=== PATIENT | male | born 1950 | race Caucasian/White ===

== ENCOUNTER 2016-10-31 05:43 | Emergency (ER) | payer OTHER ==
[~2016-10-31] VITALS: Ht 177.8 cm; Wt 91.0 kg
[2016-10-31 05:46] VITALS: TEMP 36.7; Ht 177.8 cm; Wt 91.0 kg
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
[2016-10-31] MEDS ORDERED: LISI-461 PO (06:07)
[2016-10-31] MEDS ORDERED: ATOR-24 PO (06:07)
[2016-10-31 07:34] VITALS: BP 127/94; PULSE 73; O2SAT 96
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
== END 2016-10-31 07:34 | disposition home or self-care (01) ==
LOC: C.EDB 05:45
DX: S13.4XXA Sprain of ligaments of cervical spine, initial encounter (principal); S60.221A Contusion of right hand, initial encounter; S60.222A Contusion of left hand, initial encounter; V87.8XXA Person injured in other specified noncollision transport accidents involving motor vehicle (traffic), initial encounter; Y92.411 Interstate highway as the place of occurrence of the external cause; I10 Essential (primary) hypertension; E78.5 Hyperlipidemia, unspecified; Z79.899 Other long term (current) drug therapy

== ENCOUNTER → 2017-02-23 | Outpatient (CLI) | payer OTHER ==
[~2017-02-23] MED LIST: ATOR-24 PO; LISI-461 PO
--- NOTE | 2017-02-23 11:40 | DIAGNOSTIC IMAGING REPORT ---
SINUSES MIN 3 VIEWS ROUTINE CLINICAL HISTORY: R05 [id number] Sinus [id number] cough COMPARISON STUDY: None FINDINGS: All major sinuses are clear. No evidence for bony destructive process. IMPRESSION: Normal study The above report was generated using voice recognition software. It may contain grammatical, syntax or spelling errors. Electronically signed by: Dean Hernandes M.D. 02/23/2017 11:38 AM Dictated Date/Time: 02/23/2017 11:38 AM
[2017-02-23 12:21] LABS: BASO % 1.2 %; BASO ABS # 0.07 K/uL (0-0.2); COMPLETE YES; EOS % 5.2 %; HEMATOCRIT 41.9 % (42-52); IG% 0.3 %; LYMPH % 31.6 %; LYMPH ABS # 1.82 K/uL (1.2-3.4); MEAN CELL VOLUME 93.5 fL (80-100); MEAN CORPUSCULAR HGB CONC 35.3 g/dl (32-36); MEAN PLATELET VOLUME 9.2 fL (7.4-10.4); MONO % 13.2 %; NEUT % 48.5 %; PLATELET COUNT 212 K/uL (130-400); RED BLOOD COUNT 4.48 M/uL (4.7-6.1); WHITE BLOOD COUNT 5.76 K/uL (4.8-10.8)
[2017-02-25 20:52] LABS: BORDETELLA PERTUSSIS PT IGA 3 IU/mL
== END | disposition home or self-care (01) ==
LOC: C.RAD1850 11:06
PROVIDERS: ATTEND Internal Medicine Pulmonary Disease
DX: R09.81 Nasal congestion (principal); R05 Cough; N18.9 Chronic kidney disease, unspecified; E78.5 Hyperlipidemia, unspecified

== ENCOUNTER → 2017-04-09 | Outpatient (CLI) | payer OTHER ==
[~2017-04-09] MED LIST changes: +OPTIRAY 320 IV PRN
--- NOTE | 2017-04-09 14:15 | DIAGNOSTIC IMAGING REPORT ---
(CHEST) THORAX WITH CT DOSE: 457.83 mGycm HISTORY: Cough R05 Cough TECHNIQUE: Multiaxial CT images of the chest were performed following the intravenous administration of contrast. A dose lowering technique was utilized adhering to the principles of ALARA. COMPARISON: None. FINDINGS: The lungs are clear. The mediastinal vascular structures are within normal limits. No mediastinal or hilar lymphadenopathy. No pleural effusion or pneumothorax. Limited views of the upper abdomen demonstrate a normal liver and spleen. 6 mm nodule resembling calcified granuloma transaxial image 31 medially posterior to the right major fissure. 4 mm nodule immediately adjacent to the right major fissure transaxial image 32 suggesting either intrafissural lymph node versus calcified granuloma. No focal infiltrative change. Minimal atelectatic change left lung base. IMPRESSION: Minimal atelectatic change left base. The chest is otherwise negative. Several small calcified granulomas The above report was generated using voice recognition software. It may contain grammatical, syntax or spelling errors. Electronically signed by: Dean Hernandes M.D. 04/09/2017 2:14 PM Dictated Date/Time: 04/09/2017 2:10 PM
== END | disposition home or self-care (01) ==
LOC: C.CTS 13:47
PROVIDERS: ATTEND Internal Medicine Pulmonary Disease
DX: R05 Cough (principal)

== ENCOUNTER → 2017-06-15 | Outpatient (CLI) | payer OTHER ==
[~2017-06-15] MED LIST changes: -OPTIRAY 320 IV PRN
--- NOTE | 2017-06-15 11:01 | DIAGNOSTIC IMAGING REPORT ---
CHEST 2 VIEWS ROUTINE HISTORY: R05 [id number] Abnormal chest x-ray COMPARISON: Chest CT 04/09/2017. FINDINGS: A few linear densities within the left mid to lower lung zone consistent with scarring or atelectasis. This is similar to the prior study. No new focal lung consolidations. No evidence for pulmonary edema. The heart is normal in size. No pleural effusions. No pneumothorax. Symmetric faint nodular density within the lung bases are consistent with nipple shadows. IMPRESSION: No significant change compared to the prior study. No acute process. Electronically signed by: Germán Valverde M.D. 06/15/2017 11:00 AM Dictated Date/Time: 06/15/2017 10:59 AM
== END | disposition home or self-care (01) ==
LOC: C.RAD1850 10:31
PROVIDERS: ATTEND Physician Assistant
DX: R93.8 Abnormal findings on diagnostic imaging of other specified body structures (principal); R05 Cough

== ENCOUNTER 2017-07-02 07:05 | Day surgery (SDC) | payer OTHER ==
[2017-07-02] VITALS (15 sets, daily range): BP systolic 101–136; BP diastolic 67–92; PULSE 57–67; TEMP 36.5–36.7; O2SAT 94–99; Ht 172.7 cm; Wt 88.5 kg
[~2017-07-02] VITALS: Ht 172.7 cm; Wt 88.5 kg
[2017-07-02] MEDS ORDERED: LIDOCAINE HCL 2% LOCAL 50ML VIAL INFIL ONE (07:06)
[2017-07-02] MEDS ORDERED: LEVALBUTEROL 1.25MG/3ML NEB INH ONE (07:06)
[2017-07-02] MEDS ORDERED: FENTANYL CITRATE INJ 50 MCG/1 ML 2 ML VIAL IV ONE ×2 (07:06→10:15)
[2017-07-02] MEDS ORDERED: LIDOCAINE 4% W/AFRIN NASAL SOLN 4ML ONE (07:06)
[2017-07-02] MEDS ORDERED: MIDAZOLAM HCL 5 MG/ML 1 ML VIAL IV ONE ×2 (07:06→10:15)
[2017-07-02] MEDS ORDERED: PRLSR20 PO (07:55)
[2017-07-02] MEDS ORDERED: GLUC10007 PO (08:15)
[2017-07-02] MEDS ORDERED: Potassium PO (08:15)
[2017-07-02] MEDS ORDERED: ASPI325T45 PO (08:15)
--- NOTE | 2017-07-02 09:02 | History & Physical Bridge Note ---
H&P Re-Evaluation Bridge Note: I have examined the patient, reviewed the History & Physical and in the interval since the performance of the History & Physical I have noted the following changes of clinical significance: No changes noted
--- NOTE | 2017-07-02 09:03 | Procedure Note ---
Pre-Mod Sedation Assessment General Date of Moderate Sedation: Jul 02, 2017. Vital Signs: Vital Signs Past 12 Hours Date Time Temp Pulse Resp B/P (MAP) Pulse Ox O2 Delivery O2 Flow Rate FiO2 07/02/17 08:56 36.7 57 20 126/67 97 Room Air 07/02/17 07:56 36.7 57 20 126/67 (86) 97 Room Air Pre-Sedation Airway Assessment Oral Cavity: WNL Short Thick Neck: No Hx of Sleep Apnea: No Smoking Status: Former Smoker Mallampati Classification: Class II ASA Classification: Class II Procedure Planning Contraindications-for Mod Sed: None Yes Notes The planned sedation has been discussed with the patient and consent obtained. I have identified the patient, determined the appropriateness of sedation and have assessed the patient immediately prior to the procedure. All medicine(s) and interventions are by my order.
[2017-07-02] MEDS ORDERED: NURSING VERBAL MED ORDER ONE ×2 (09:15→10:00)
[2017-07-02] MEDS ORDERED: DEXTROSE 5% 1000ML 1,000 ML IV SCH (09:30)
--- NOTE | 2017-07-02 11:03 | Discharge Instructions ---
Discharge Instructions Date of Service Jul 02, 2017. Admission Reason for Admission: Cough, Abd Cxr, Sob Discharge Discharge Diagnosis / Problem: Chronic Mucopurulent Bronchitis Discharge Goals Goal(s): Diagnostic testing, Therapeutic intervention Activity Recommendations Activity Limitations: resume your previous activity Lifting Limitations: none Exercise/Sports Limitations: none May Resume Sexual Activity: when tolerated Shower/Bathe: no limitations Driving or Machine Use: resume 1 day after discharge . Instructions / Follow-Up Instructions / Follow-Up ACTIVITY RECOMMENDATIONS: * Rest today, resume normal activity tomorrow. * Do not drive today. SPECIAL CARE INSTRUCTIONS: * Call your physician if you experience any chest or shoulder pain, fever, coughing, spitting up blood (more than 2 teaspoons) or excessive shortness of breath. * Remove dressing from IV site (where needle was placed into the vein) after 2 hours. Apply a warm, moist compress to site if irritation occurs. Call physician if site becomes red or painful to touch. FOLLOW UP VISIT: * Keep any scheduled doctor appointments. Current Hospital Diet Patient's current hospital diet: Discharge Diet Recommended Diet: Regular Diet Fluid Restriction: None Pending Studies Studies pending at discharge: no Medical Emergencies . Who to Call and When: Medical Emergencies: If at any time you feel your situation is an emergency, please call 911 immediately. . Non-Emergent Contact Non-Emergency issues call your: [employer] Call Non-Emergent contact if: temperature is above 101 . . "Provider Documentation" section prepared by Jesse Romero. . VTE Core Measure Inpt VTE Proph given/why not?: Treatment not indicated
--- NOTE | 2017-07-02 11:24 | OPERATIVE REPORT ---
DATE OF OPERATION: 07/02/2017 PROCEDURE: Fiberoptic bronchoscopy with bronchoalveolar lavage. INDICATIONS: Chronic cough/throat clearing refractory to aggressive outpatient therapy. ANESTHESIA PREOPERATIVELY: None. ANESTHESIA DURING PROCEDURE: 5 mg IV Versed, 50 mcg IV fentanyl, 20 mL 2% Xylocaine spray above and below the cords, 4% viscous Xylocaine intranasally. DESCRIPTION OF PROCEDURE: Fiberoptic bronchoscope was inserted into the left naris with minimal difficulty and passed to the level of the true vocal cords. The nasopharynx appeared to be edematous and narrowed and the false cords appeared to be edematous as well and mildly erythematous. The cords appear to approximate normally with phonation without evidence of lesions or paralysis. The area was anesthetized with 2% Xylocaine spray and the scope was then introduced in the trachea and right and left tracheobronchial tree. The chucky was sharp. The right main stem bronchus was found to be free of endobronchial lesions. The right upper lobe, the apical posterior and anterior segments were identified and mucous pitting was prominently displayed at the takeoff of the right upper lobe orifice. The bronchus intermedius, right middle lobe and the medial and lateral segments and all basilar segments of the right lower lobe were found to be free of endobronchial lesions with a moderate amount of relatively clear mucoviscous secretion lavaged from all lobar segments until clear. Left tracheobronchial tree was explored and no obvious endobronchial lesion was seen. Left upper lobe, the apical-posterior and anterior segments, lingular subdivision with the superior and inferior segments and all basilar segments of left lower lobe were free of endobronchial lesions down to the subsegmental bronchi. The right and left lower lobes were copiously lavaged with normosol and the aspirate sent for appropriate studies. No brushings or biopsies were obtained. The scope was then withdrawn into the nasopharynx and then withdrawn completely. The patient was given a nebulizer treatment with Xopenex 1.25 mg and transferred to the medical treatment unit hemodynamically stable with no signs of expiratory compromise. We will await microbiological and cytologic examination of the bronchial washings. RECOMMENDATIONS: 1. Increase omeprazole to 20 mg p.o. b.i.d. and instructed patient on antireflux precautions and measures. 2. Schedule nocturnal polysomnograph as I have concerns patient may have obstructive sleep apnea, both by the appearance of the nasopharynx and historically. 3. ENT evaluation. 4. Discontinue lisinopril for possible CHRISTINA inhibitor induced cough/throat irritation. PLAN: Followup in clinic followup upon completion of these studies. I attest to the content of the Intraoperative Record and any orders documented therein. Any exception s are noted below.
[2017-07-06 14:36] LABS: HERPES SIMPLEX CULT SOURCE OTHER-R&L TRACHBRONC; HERPES SIMPLEX VIRUS CULT ISOLATED (NOT ISOLATED)
== END 2017-07-02 12:08 | disposition home or self-care (01) ==
LOC: C.ACU 07:05
PROVIDERS: ATTEND Internal Medicine Pulmonary Disease
DX: R05 Cough (principal); I12.9 Hypertensive chronic kidney disease with stage 1 through stage 4 chronic kidney disease, or unspecified chronic kidney disease; N18.9 Chronic kidney disease, unspecified; E78.5 Hyperlipidemia, unspecified; K21.9 Gastro-esophageal reflux disease without esophagitis; M51.36 Other intervertebral disc degeneration, lumbar region; Z79.899 Other long term (current) drug therapy

== ENCOUNTER → 2017-07-20 | Outpatient (CLI) | payer OTHER ==
[~2017-07-20] MED LIST changes: +ASPECOTC PO; +GLUC10007 PO; +PRLSR20 PO; +Potassium PO
--- NOTE | 2017-07-21 05:50 | PAP/PSG TECHNICIAN REPORT ---
[facility] Web Project Manager Polysomnogram Report Study name: None Report date: 07/21/2017 Study date: 07/20/2017 Referring Physician: DR. VAUGHN Name: RENZO MATTHEWS Interpreting Physician: Abran Baker M.D. Date of : 1950 Web Project Manager: Isra Rod RPSGT. Sex: Male Age: 67 StudyType: PSG Weight: 201 lbs Height: 67 years, Height 5' 10" BMI: 28.84 Medications: ATORVASTATIN CACLIUM 40 MG, LISINOPRIL 10 MG, OMEPRAZOLE 40 MG, MONTELUKAST SODIUM 10 MG, GLUCOSAMINE Patient History PATIENT HAS HISTORY OF FATIGUE, LOW ENERGY AND DAYTIME SLEEPINESS. ALSO HAS HISTORY OF CHRONIC COUGH. HE IS HERE TODAY FOR AN EVALUATION FOR YELENA. ESS = 3 RM 8 Parameters Monitored NPSG: E1-M2, E2-M1, Fp1-M2, Fp2-M1, F3-M2, F4-M2, F4-M1, C3-M2, C4-M2, C4-M1, O1-M2, O2-M2, O2-M1, T3-M2, T4-M1, P3-M2, P4-M1, CHIN1, CHIN2, HR, EKG, Legs, PFLOW, SNOR, FLOW, CFLOW, Tidal Volume, THOR, ABDO, SpO2, PLTH, CPRESS, ETCO2 Wave, ETCO2, pH Sleep Architecture Sleep Stages Time at Lights Off 8:51:46 PM STAGES Time (min.) TST (%) Time at Lights On 5:28:16 AM Wake 235.0 -- Total Recording Time (TRT) 517.00 min. N1 17.5 6 Total Sleep Period (TSP) 425.0 min. N2 152.5 54 Total Sleep Time (TST) 281.5min. N3 50.0 18 Awake Time 235.5 min. REM 61.5 22 Wake after Sleep Onset 143.5 min. Sleep Efficiency (SE) 55 % Sleep Onset Latency (ALMA) 91.5 min. Number of Stage 1 Shifts None Awakenings 22 Stage Changes 79 Number of REM periods 5 REM 61.5 22 REM Latency 84.0 min. NREM 220.0 78 Body Position Analysis Supine Right Left Side Prone Vertical Total Sleep Time (min.) 301.3 0.0 161.5 161.55 0.0 0.0 Total Sleep Time (%) 43% 0% 57% 57 0% N/A% Total Sleep Time REM (min.) 7.5 0.0 54.0 None 0.0 0.0 Total Sleep Time NREM (min.) 112.5 0.0 107.5 None 0.0 0.0 Intermittent Wake (min.) 181.4 0.0 53.6 None 0.0 0.0 Total Sleep Period (%) 49% None None None None None Arousals Myoclonus (PLM) * Events Count Index Events Count Index Spontaneous 22 5 Events Awake (PLMW) 120 30.6 Respiratory 11 2.8 Events Asleep w/ Arousal (PLMA) 2 0.4 PLM 2 0 Events Asleep w/o Arousal (PLMS) 14 3.0 Snoring 3 1 Total Asleep 16 3.4 Total 38 8 Total 136 16 Respiratory Analysis * CA OA MA CH H RERA Total Count 0 2 0 0 16 11 18 Index 0.0 0.4 0.0 0 3.4 2 6.2 Mean Duration 0.0 37.6 0.0 0.00 23.8 18.7 22.8 Longest Duration 0.0 43.8 0.0 0.00 0.0 21.4 43.8 Respiratory Event Summary Total Supine ~Supine Right Left Prone REM NREM Apneas Count 2 2 0 N/A 0 N/A 2 0 Index 0.4 1 0 N/A 0.0 N/A 2 0 Hypopneas (4% Desat) Count 16 13 3 N/A 3 N/A 7 9 Index 3.4 6.5 1 N/A 1.1 N/A 6.8 2.5 Apneas & All Hypopneas Count 18 15 3 N/A 3 N/A 9 9 Index 3.8 8 1 N/A 1 N/A 8.8 2.5 Respiratory Events (Digital Marketing Coordinator+All Hyp+RERA) Count 18 25 4 N/A 4 N/A 9 9 Index 6.2 13 1 N/A 1.5 N/A 8.8 5.5 Respiratory Related Arousal Count 11 25 0 N/A 0 N/A 1 12 Index 2.8 7 0 N/A 0 N/A 1 3 Snoring Analysis Supine Right Left Prone REM NREM Total Snore duration 13.5 min Snores count 408 N/A 209 N/A 96 521 617 Snore mean duration 1.3 Sec Snores index 204 N/A 78 N/A 93.7 142.1 131.5 TST with snoring (%) 4.8% Desaturation Event Summary: Minimum %SpO2 Event Count Mean/Min/Max Duration(sec.) Desaturation Index % Time In Bed > 90 20 35.7 / 18.5 / 64.2 2.4 98.9 86 - 90 1 23.5 / 23.5 / 23.5 11.4 1.0 81 - 85 0 N/A 0.0 0.1 76 - 80 0 N/A 0.0 0.0 71 - 75 0 N/A 0.0 0.0 66 - 70 0 N/A 0.0 0.0 61 - 65 0 N/A 0.0 0.0 56 - 60 0 N/A 0.0 0.0 51 - 55 0 N/A 0.0 0.0 < 50 0 N/A 0.0 0.0 Total REM NREM Awake <50% 0.0 min. 0.0 min. 0.0 min. 0.0 min. 51 - 60% 0.0 min. 0.0 min. 0.0 min. 0.0 min. 61 - 70% 0.0 min. 0.0 min. 0.0 min. 0.0 min. 71 - 80% 0.2 min. 0.0 min. 0.0 min. 0.2 min. 81 - 90% 5.6 min. 2.3 min. 2.3 min. 1.0 min. 91 - 100% 503.5 min. 59.2 min. 217.8 min. 226.6 min. Average 93 93 93 94 Minimum SpO2 80 87 83 80 Desaturation Event Index 2.3 9.8 2.2 0.5 # Desat. Events below 89% 5 4 1 0 Time(%) with Saturation below 89% 0.2 0.1 0.1 0.1 Time(min.) with Saturation below 89% 1.2 0.4 0.4 0.4 Time (mins) REM (mins) NREM (mins) % of TST SpO2 Below 90% 11 8 N3 0.5 SpO2 Below 88% 3 0 0 0 Heart Rate Analysis Min (bpm) Max (bpm) Average (bpm) Awake 51 127 56 NREM 50 95 54 REM 51 64 55 Overall 50 95 54 Supplemental O2 Values Minimum O2 level: None Value Start Time End Time Web Project Manager Comments Mr. Matthews slept in the left and supine positions. No cardiac arrhythmia noted. Leg movements noted. No bruxism noted. Snoring was noted and scored as a 4 on a scale of 1 through 5. (0=no snoring, 5=snoring loud enough to be heard through a closed door or down the story way) Mr. Matthews awoke to use the restroom 1 time during the night. Mr. Matthews stated I slept as well as I do when I am in my own bed. The final report will be interpreted and signed by a sleep physician. The completed physician report will then be placed in the patient medical record. Therapy (cm H2O) 0 TIB (min.) 516.5 TST (min.) 281.5 Sleep Onset (min.) 91.5 REM Onset From Sleep (min.) 84.0 Sleep Efficiency % 55 Wakefulness (%) 45 Wakefulness (min.) 235.5 NREM 1 (%) 6 NREM 1 (min.) 17.5 NREM 2 (%) 54 NREM 2 (min.) 152.5 NREM 3 (%) 18 NREM 3 (min.) 50.0 REM (%) 22 REM (min.) 61.5 # Arousals 38 Arousal Index 8 # Snore 617 Snore Index 131.5 AHI 3.8 AHI Supine 8 AHI Non-Supine 1 NREM AHI 2.5 REM AHI 8.8 RDI 6.2 # Obstructive Apnea 2 # Central Apnea 0 # Mixed Apnea 0 # Hypopneas 16 RERAs 11 Total Respiratory Events 30 Time Below SpO2 89% (min.) 0.8 Mean NREM SpO2 (%) 93 Mean REM SpO2 (%) 93 Mean Sleep SpO2 (%) 93 Min NREM SpO2 (%) 83 Min REM SpO2 (%) 87 Position Supine (min.) 301.3 Position Non-supine (min.) 161.5 LM Index Sleep 3.4 LM Index NREM 3.0 LM Index REM 4.9 Mean Heart Rate (bpm) 54 Min Heart Rate (bpm) 50
--- NOTE | 2017-07-22 12:09 | POLYSOMNOGRAPH REPORT ---
CLINICAL DATA: A 67-year-old male with a BMI of 28.[address] Romero with fatigue, low energy and daytime sleepiness. He has a history of chronic cough. Because of the appearance of his airway during bronchoscopy and his symptoms, he was referred for a sleep study. His [place] sleepiness score is 3/24. SLEEP ARCHITECTURE: Total sleep period was 425 minutes. Total sleep time was only 281.5 minutes divided between 220 minutes of non-REM sleep and 61.5 minutes of REM sleep. Sleep onset latency was delayed at 91.5 minutes. REM latency was 84 minutes. Sleep efficiency was reduced to 55%. Wake after sleep onset was elevated at 143.5 minutes. Sleep consisted of stage N1 6%, stage N2 54%, stage N3 18%, and REM 22%. AROUSAL DATA: Thirty eight arousals were recorded for an index of 8 per hour. PERIODIC LIMB MOVEMENTS DATA: Sixteen limb movements during sleep were noted for an index of 3.4 per hour with arousal index of 0.4 per hour. RESPIRATORY DATA: The patient did not demonstrate clinically significant sleep apnea/hypopnea, but may have evidence of very mild upper airway resistance syndrome. The AHI was 3.8. The RDI was 6.2. There were 2 obstructive apneic episodes. The longest duration of apnea was 43.8 seconds. There were 16 hypopneic episodes with a mean duration of 23.8 seconds. There were 11 respiratory effort related arousals with a maximum duration of 21.4 seconds. OXIMETRY DATA: No significant hypoxemia was seen. Oxygen nelson was 83% during non-REM sleep. The mean saturation was 92%. Time below 88% was 3 minutes. ECHOCARDIOGRAM: Heart rates ranged from 50-95 beats per minute. No arrhythmias were noted. UX LEAD'S COMMENTS: The patient slept in the left and supine positions. Snoring was severe, rated 4 on a scale of 1-5. IMPRESSION: No definite evidence of clinically significant sleep apnea/hypopnea with an apnea/hypopnea index of 3.8. However, the patient did have an respiratory disturbance index of 6.2 when respiratory effort related arousals were added to the apnea/hypopnea index suggesting very mild upper airway resistance syndrome. RECOMMENDATIONS: The patient may benefit from positional therapy since most of his events occurred while supine, use of nasal steroids for nasal obstruction, or ENT evaluation. If he continues to have symptoms, an oral appliance or CPAP could be considered, although his findings are quite mild, based on his current sleep study. Clinical correlation is needed. DAMIEN
== END | disposition home or self-care (01) ==
LOC: C.NEUR 20:00
PROVIDERS: ATTEND Internal Medicine Pulmonary Disease
DX: G47.30 Sleep apnea, unspecified (principal)

== ENCOUNTER → 2017-08-30 | Outpatient (CLI) | payer OTHER ==
[~2017-08-30] MED LIST changes: -ASPECOTC PO; +ASPI325T45 PO; +OPTIRAY 320 IV PRN
--- NOTE | 2017-08-30 14:20 | DIAGNOSTIC IMAGING REPORT ---
FUSION CT SINUSES W/O HISTORY: 67 years-old Male J33.9 Nasal polypsNASAL POLYPS. Cough a sinonasal polyps and allergic rhinitis COMPARISON: CT soft tissue neck of same day TECHNIQUE: Multiple axial CT images of the paranasal sinuses were obtained without contrast. Axial Medtronic images also obtained. A dose lowering technique was used consistent with the principals of DEANA. FINDINGS: The mastoid air cells and middle ear cavities are clear bilaterally. There is mild left and minimal right mucoperiosteal thickening of the maxillary sinuses. Bilateral frontal sinuses are clear. There is mild mucoperiosteal thickening of the bilateral ethmoid air cells. Mild right and [id number] left sphenoid sinus mucoperiosteal thickening. Bubbly secretions are present within the right sphenoid sinus. Mucosal thickening narrows the bilateral sphenoethmoidal recesses. The bilateral frontoethmoidal recesses are patent. The bilateral maxillary ostiomeatal units are also patent. No hilar cells identified. Moderate right hang bullosa. Mild rightward bowing and spurring of the nasal septum. Nasopharynx is patent. Nasal turbinates are also patent. No facial bone fracture or subluxation identified. Degenerative changes are seen within the imaged cervical spine. Soft tissues are unremarkable. Image intracranial structures demonstrate no acute abnormality. Ill-defined areas of low-attenuation within the periventricular white matter suggest mild chronic microvascular ischemic changes, notably within the left frontal lobe. Mild cerebral atrophy. Vascular calcifications are seen at the level of the skull base. IMPRESSION: 1. Paranasal sinus disease as above with mucosal thickening and narrowing of the bilateral sphenoethmoidal recesses. No ostiomeatal occlusive disease. 2. Moderate right-sided hang bullosa. 3. Mild rightward bowing and spurring of the nasal septum. The above report was generated using voice recognition software. It may contain grammatical, syntax or spelling errors. Electronically signed by: Valeriy Oneal M.D. 08/30/2017 2:18 PM Dictated Date/Time: 08/30/2017 2:12 PM
--- NOTE | 2017-08-30 14:30 | DIAGNOSTIC IMAGING REPORT ---
SOFT TISSUE NECK WITH HISTORY: 67 years-old Male R05 [id number] GERD without [id number] Abnormal chest x-ra acute cough with possible hyoid bone injury COMPARISON: CT paranasal sinus study of same day, CT cervical spine 10/31/2016 TECHNIQUE: Multiple axial CT images of the soft tissues of the neck were obtained following the intravenous administration of 93 mL Optiray 320. A dose lowering technique was used consistent with the principals of ALARA. FINDINGS: No pneumothorax. 4 mm partially calcified nodule abuts the major fissure within the apical posterior segment left upper lobe. Carotid vasculature is patent. Mild mixed plaquing the carotid bulbs with less than 50% stenosis. The left vertebral artery is dominant. The right vertebral artery appears to terminate into the PICA. The nasopharynx, oral pharynx and hypopharynx appear patent and within normal limits. Mild mucosal secretions noted within the left vallecula. Piriform sinuses appear patent. Cricoid cartilage and glottis appear unremarkable. The hyoid bone appears intact without acute fracture. Preglottic fat appears maintained. Thyroid is homogeneous. Parotid and submandibular glands appear to be within normal limits. No pathologic adenopathy identified. Mild paranasal sinus disease, further discussed on CT sinus study of same day. Multilevel intervertebral disc space narrowing, facet arthrosis and disc osteophyte complex formation throughout the cervical spine with mild reversal of the normal cervical lordosis. 3 mm anterolisthesis C2 on C3 is likely secondary to long-standing facet disease. IMPRESSION: 1. No acute abnormality identified involving the soft tissues of the neck. 2. Intact hyoid bone without evidence of fracture. 3. Mild paranasal sinus disease. 4. Multilevel degenerative changes of the cervical spine. The above report was generated using voice recognition software. It may contain grammatical, syntax or spelling errors. Electronically signed by: Valeriy Oneal M.D. 08/30/2017 2:29 PM Dictated Date/Time: 08/30/2017 2:20 PM
== END | disposition home or self-care (01) ==
LOC: C.CTS 12:56
PROVIDERS: ATTEND Physician Assistant
DX: K21.9 Gastro-esophageal reflux disease without esophagitis (principal); R05 Cough; R93.8 Abnormal findings on diagnostic imaging of other specified body structures; J33.9 Nasal polyp, unspecified; J32.8 Other chronic sinusitis; J34.89 Other specified disorders of nose and nasal sinuses; M47.812 Spondylosis without myelopathy or radiculopathy, cervical region

== ENCOUNTER → 2017-09-09 | Outpatient (CLI) | payer OTHER ==
[~2017-09-09] MED LIST changes: -OPTIRAY 320 IV PRN
--- NOTE | 2017-09-09 07:47 | DIAGNOSTIC IMAGING REPORT ---
(BARIUM SWALLOW) ESOPHAGUS CLINICAL HISTORY: 67 years-old Male presenting with R05 [id number]. TECHNIQUE: A standard air contrast barium esophagram is performed. Multiple spot images of the esophagus are acquired both upright and prone. COMPARISON: CTA neck from 08/30/[address] chest from 04/09/2017. FINDINGS: The patient was able to ingest barium and the barium pill without difficulty. Normal mucosal pattern. No evidence of intrinsic or extrinsic mass lesion. No focal narrowing of the esophagus. No aspiration observed. Tertiary contractions evident in the mid to distal esophagus. The gastroesophageal junction distended normally. No gastroesophageal reflux. Fluoroscopy dosage (mGy): Not available. Fluoroscopy time: 1.8 minutes. Number of fluoroscopic spot images: 23. IMPRESSION: Tertiary contractions suggests dysmotility, likely presbyesophagus. No evidence of esophageal stenosis. Electronically signed by: Orlando Avila M.D. 09/09/2017 7:45 AM Dictated Date/Time: 09/09/2017 7:44 AM
== END | disposition home or self-care (01) ==
LOC: C.RAD 07:08
PROVIDERS: ATTEND Physician Assistant
DX: R05 Cough (principal)